=== PATIENT | female | born 1985 | race Caucasian/White ===

== ENCOUNTER 2017-08-27 14:22 | Emergency (ER) | payer BC, OTHER ==
[2017-08-27] MEDS ORDERED: Tetan/Diph/Pertus SYR(Tdap)* 0.5 ML SYR(BOOSTRIX) use SYR IM ONE (15:56)
--- NOTE | 2017-08-27 16:19 | ED ---
- HPI Summary HPI Summary: Patient is an otherwise healthy 31-year-old female presenting to the ED s/p needlestick to the radial side of the distal tip of the right index finger. 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 She immediately became very anxious and arrives to the ED with another coworker. Unknown status of the source patient individual. He is willing to be tested and we have ordered the correct test to be done including HIV, hep B and hep C. I have discussed the low risk of her HIV transmission and have advised against prep prophylaxis. - History of Current Complaint Chief Complaint: EDExposureBodyFluid Stated Complaint: NEEDLE STICK Time Seen by Provider: 08/27/17 15:07 Needlestick: Solid Needle Blood on Needle: Yes Bleeding at Site: Yes - previously Body Fluid Exposure: Blood Treatment SERVICE ADVISOR: Cleaned Wound - Source Information HIV: No - Risk Factors Needlestick Risk Factor: Low Risk: Solid Needle - Other Discussed Post-Exposure prophylaxis (PEP) for HIV: Declined Discussed PEP for Hepatitis-B: Declined PMH/Surg Hx/FS Hx/Imm Hx Previously Healthy: Yes - Immunization History Hx Pertussis Vaccination: No Immunizations Up to Date: Unable to Obtain/Confirm Infectious Disease History: No Infectious Disease History: Denies: Traveled Outside the [place] in Last 30 Days - Social History Occupation: Student Lives: With Family Alcohol Use: None Hx Substance Use: No Substance Use Type: Reports: None Hx Tobacco Use: No Smoking Status (MU): Never Smoked Tobacco Review of Systems Constitutional: Negative Negative: Fever, Chills, Fatigue, Skin Diaphoresis Eyes: Negative Cardiovascular: Negative Respiratory: Negative Positive: no symptoms reported, see HPI Musculoskeletal: Negative Skin: Negative Positive: Anxious All Other Systems Reviewed And Are Negative: Yes Physical Exam Triage Information Reviewed: Yes Vital Signs On Initial Exam: Initial Vitals Temp Pulse Resp BP Pulse Ox 99.2 F 99 18 149/91 100 08/27/17 14:32 08/27/17 14:32 08/27/17 14:32 08/27/17 14:32 08/27/17 14:32 Vital Signs Reviewed: Yes Appearance: Positive: Well-Appearing, Well-Nourished Skin: Positive: Warm, Skin Color Reflects Adequate Perfusion Head/Face: Positive: Normal Head/Face Inspection Eyes: Positive: EOMI, ANA, Conjunctiva Clear Neck: Positive: Supple, Nontender, No Lymphadenopathy Respiratory/Lung Sounds: Positive: Clear to Auscultation, Breath Sounds Present Cardiovascular: Positive: RRR, Pulses are Symmetrical in both Upper and Lower Extremities Musculoskeletal: Positive: Normal, Strength/ROM Intact Neurological: Positive: Sensory/Motor Intact, Alert, Oriented to Person Place, Time, Speech Normal Psychiatric: Positive: Normal, Affect/Mood Appropriate AVPU Assessment: Alert Diagnostics - Vital Signs Vital Signs Temp Pulse Resp BP Pulse Ox 08/27/17 14:32 99.2 F 99 18 149/91 100 - Laboratory Lab Statement: Any lab studies that have been ordered have been reviewed, and results considered in the medical decision making process. Needlestick Course/Dx - Course Course Of Treatment: Discussed with the patient low risk for infection. Patient appears to be anxious on arrival. Source patient tested negative for HIV. Hep B and hep C are send outs and we'll call with any positive results. I have given her the follow-up with Dr. Díaz if anything becomes positive. She has not started on prophylactic treatment at this time. Discharge - Discharge Plan Condition: Stable Disposition: HOME Patient Education Materials: Needle Stick Injuries (ED) Referrals: Jorge Mauricio MD [Primary Care Provider] - Additional Instructions: You may call the ED with results in 2-3 days. We will call with any POSITIVE results only.
[2017-08-27 18:03] VITALS: BP 122/83
== END 2017-08-27 18:02 | disposition home or self-care (01) ==
LOC: MERGE 14:22 → ED 14:22
DX: S61.230A Puncture wound without foreign body of right index finger without damage to nail, initial encounter (principal); F41.9 Anxiety disorder, unspecified; W46.1XXA Contact with contaminated hypodermic needle, initial encounter; Y92.239 Unspecified place in hospital as the place of occurrence of the external cause
CPT/HCPCS: 36415; 86703; 86706; 86803; 87340; 90715; 99282

== ENCOUNTER 2019-03-23 13:41 | Emergency (ER) | payer BC, MEDICAID, OTHER ==
[2019-03-23 13:58] VITALS: BP 111/78
--- NOTE | 2019-03-23 15:56 | UC ---
Dental HPI - HPI Summary HPI Summary: 33 yo WF p/w right upper 2nd molar toothache x 2 days radiating to the right alevism and thinks she needs a root canal - History of Current Complaint Chief Complaint: UCDentalProblem Stated Complaint: DENTAL Time Seen by Provider: 03/23/19 14:00 Hx Obtained From: Patient Hx Last Menstrual Period: 03/09/19 Onset/Duration: Sudden Onset Severity: Moderate Pain Intensity: 7 Aggravating Factor(s): Chewing - Allergies/Home Medications Allergies/Adverse Reactions: Allergies Allergy/AdvReac Type Severity Reaction Status Date / Time No Known Allergies Allergy Verified 03/23/19 13:58 Home Medications: Home Medications Ibuprofen TAB* [Motrin TAB* 400 MG] 400 mg PO Q6HR 03/23/19 [History Confirmed 03/23/19] PMH/Surg Hx/FS Hx/Imm Hx Previously Healthy: Yes - Surgical History Surgical History: None - Family History Known Family History: Positive: None, Non-Contributory - Social History Alcohol Use: None Substance Use Type: None Smoking Status (MU): Never Smoked Tobacco Type: Cigarettes Review of Systems All Other Systems Reviewed And Are Negative: Yes Constitutional: Positive: Negative Skin: Positive: Negative Eyes: Positive: Negative ENT: Positive: Dental Pain Respiratory: Positive: Negative Cardiovascular: Positive: Negative Gastrointestinal: Positive: Negative Motor: Positive: Negative Musculoskeletal: Positive: Negative Is Patient Immunocompromised?: No Physical Exam - Summary Physical Exam Summary: Vital Signs Reviewed: Yes Eye Exam: Normal Eyes: Positive: Conjunctiva Clear ENT: Positive: cavities filled and nonfluctuant gums but extremely TTP in certain areas in gingiva surrounding last 2 molars Neck: Positive: Supple Respiratory Exam: Normal Respiratory: Positive: Lungs clear, Normal breath sounds. Cardiovascular Exam: Normal Cardiovascular: Positive: RRR Abdomen: NT/ND Musculoskeletal Exam: Normal Neurological Exam: Normal Psychological Exam: Normal Skin Exam: Normal Triage Information Reviewed: Yes Vital Signs: Initial Vital Signs Temp 36.5 C 03/23/19 13:52 Pulse 105 03/23/19 13:52 Resp 16 03/23/19 13:52 BP 111/78 03/23/19 13:52 Pulse Ox 100 03/23/19 13:52 Dental Complaint Course/Dx - Course Course Of Treatment: pt requests coverage for dental abscess with abx, and she will f/u with dentist - Differential Dx/Diagnosis Differential Diagnosis/Dx: Dental Abscess, Dental Caries, Gingivitis, Peridontic Disease Provider Diagnosis: Pain, dental Discharge ED - Sign-Out/Discharge Documenting (check all that apply): Patient Departure All imaging exams completed and their final reports reviewed: No Studies - Discharge Plan Condition: Stable Disposition: HOME Prescriptions: Clindamycin HCl 300 mg PO TID 10 Days #30 capsule Naproxen [Naproxen 500 mg tab] 500 mg PO BID 10 Days #20 tablet Patient Education Materials: Toothache (ED) Referrals: Jorge Mauricio MD [Primary Care Provider] - Additional Instructions: follow up with dentist - Billing Disposition and Condition Condition: STABLE Disposition: Home
== END 2019-03-23 16:00 | disposition home or self-care (01) ==
LOC: UCEAST 13:41
DX: K08.89 Other specified disorders of teeth and supporting structures (principal)
CPT/HCPCS: 99212; G0463